=== PATIENT | male | born 1945 | race Caucasian/White ===

== ENCOUNTER → 2017-04-18 | Outpatient (CLI) | payer OTHER ==
[~2017-04-18] VITALS: Ht 177.8 cm; Wt 86.2 kg
[~2017-04-18] MED LIST: AMBIEN5 MG PO; FLOMAX0.4 MG PO; LEVO-T150 MCG PO; LEXAPRO20 MG PO; LIPITOR20 MG PO; LOPRESSOR50 MG PO; PRESERVISION T1 EACH PO; PRILOSEC20 MG PO; PROCARDIA XL30 MG PO; RAYOS5 MG PO; VITAMIN D31000 UNIT PO
== END | disposition home or self-care (01) ==
LOC: AMB 07:42
DX: R13.10 Dysphagia, unspecified (principal); K22.2 Esophageal obstruction; K29.70 Gastritis, unspecified, without bleeding; M34.9 Systemic sclerosis, unspecified; I73.00 Raynaud's syndrome without gangrene; K21.9 Gastro-esophageal reflux disease without esophagitis; R63.4 Abnormal weight loss; I10 Essential (primary) hypertension; E78.5 Hyperlipidemia, unspecified; E03.9 Hypothyroidism, unspecified; Z87.891 Personal history of nicotine dependence; Z82.49 Family history of ischemic heart disease and other diseases of the circulatory system; Z82.3 Family history of stroke
CPT/HCPCS: 88305; 88342 TC; 93005